=== PATIENT | female | born 1930 | race African-American/Black ===

== ENCOUNTER 2020-01-05 18:20 | Emergency (ER) | payer OTHER, MEDICARE ==
[~2020-01-05] VITALS: Ht 162.6 cm; Wt 54.4 kg
[~2020-01-05 18:20] MED LIST: AMLODIPINE BESY10 M1 PO; CARAFATE1 GM PO; CIPRO500 MG PO; COLACE100 MG PO; COZAAR50 MG PO; GLIMEPIRIDE2 M1 PO; GLU500 PO; NEU100 PO; OMEPRAZOLE40 M1 PO; OXYBUTYNIN CHLOR5 MG PO; PENICILLIN VK500 MG PO; VICODIN1 TA1 PO; VITAMIN D32000 I2 PO
[2020-01-05 18:27] VITALS: Ht 162.6 cm; Wt 54.4 kg
[2020-01-05 21:03] VITALS: BP 172/80
== END 2020-01-05 21:03 | disposition home or self-care (01) ==
LOC: ED 18:20
DX: L02.511 Cutaneous abscess of right hand (principal); M25.50 Pain in unspecified joint; I10 Essential (primary) hypertension; E11.9 Type 2 diabetes mellitus without complications
CPT/HCPCS: J2001; Q0092

== ENCOUNTER 2020-03-20 22:02 | Emergency (ER) | payer MEDICARE, OTHER ==
[~2020-03-20] VITALS: Ht 157.5 cm; Wt 57.6 kg
[2020-03-20 22:12] VITALS: Ht 157.5 cm; Wt 57.6 kg
[2020-03-20 23:30] LABS: BASOPHIL % 0.4 % (0-2); PLATELET COUNT 163 x10^3mcL (130-400)
[2020-03-20 23:31] LABS: RED CELL DISTRIBUTION WIDTH 17.1 % (11.5-14.5)
[2020-03-20 23:46] LABS: CALCIUM 9.4 mg/dL (8.5-10.1); CARBON DIOXIDE 24.4 mmol/L (21-32); CHLORIDE SERUM 103 mmol/L (98-107); CREATININE SERUM 1.4 mg/dL (0.6-1.0); GLUCOSE SERUM 133 mg/dL (74-106); SODIUM SERUM 138 mmol/L (136-145)
[2020-03-20 23:51] LABS: ALBUMIN 3.4 g/dL (3.4-5.0); ALKALINE PHOSPHATASE 50 U/L (46-116); ALT/SGPT 13 U/L (14-59); AST/SGOT 20 U/L (15-37); BILIRUBIN TOTAL 0.3 mg/dL (0.20-1.00); LIPASE 102 IU/L (73-393); TOTAL PROTEIN, SERUM 7.7 g/dL (6.4-8.2)
[2020-03-21 01:15] LABS: microscopic required? YES; urine erythrocyte NEGATIVE (NEGATIVE)
[2020-03-21 01:48] VITALS: BP 152/71
== END 2020-03-21 01:48 | disposition home or self-care (01) ==
LOC: ED 22:02
PROVIDERS: Emergency Medicine
DX: R19.7 Diarrhea, unspecified (principal); E86.0 Dehydration; E11.9 Type 2 diabetes mellitus without complications; I10 Essential (primary) hypertension
CPT/HCPCS: 82962